=== PATIENT | female | born 1995 | race Caucasian/White ===

== ENCOUNTER 2016-08-10 09:50 | Outpatient (CLI) | payer OTHER ==
[~2016-08-10] VITALS: Ht 167.6 cm; Wt 123.4 kg
[~2016-08-10 09:50] MED LIST: 12 HOUR DECONG120 M1 PO; AMOXICILLIN875 MG PO; ANAPROX DS550 M1 PO; BENADRYL25 MG PO; BENTYL20 MG PO; DEPAKOTE ER500 MG PO; DIFLUCAN150 MG PO; EMVERM100 MG PO; FIORICET 50-301 EACH PO; IBUPROFEN600 MG PO; IMITREX25 MG PO; LEVOTHYROXINE75 MCG PO; MAGIC MOUTHWASH1 ML MM; METRONIDAZOLE500 MG PO; MOTRIN600 MG PO; MOTRIN800 MG PO; PEPCID20 MG PO; PREDNISONE10 M1 PO; PROMETHAZINE HC25 M1 PO; PROZAC; REGLAN10 MG PO; TRAMADOL HCL50 MG PO; ZOFRAN ODT4 MG PO; ZOFRAN4 MG PO; ZOLOFT25 MG PO
[2016-08-10 10:01] VITALS: BP 128/87
[2016-08-10 10:34] LABS: EOSINOPHIL (%) 0.1 % (0-5); HEMATOCRIT 39.8 % (36.0-46.0); IMMATURE GRANULOCYTE (%) 0.5 % (0.0-0.7); IMMATURE GRANULOCYTE COUNT 0.1 K/uL; LYMPHOCYTE COUNT 0.7 K/uL (1.0-2.8); MCH 29.7 PG (29.0-34.0); MCHC 32.9 G/DL (30.0-36.0); MCV 90.2 FL (83-99); MEAN PLAT.VOLUME 11.9 uM^3 (9.5-12.4); MONOCYTE (%) 3.8 % (3-12); MONOCYTE COUNT 0.7 K/uL (0-0.8); NEUTROPHIL (%) 91.8 % (45-76); PLATELET COUNT 194 K/uL (156-360); RBC DIS.WIDTH-CV 14.3 % (11.8-14.6); RBC DIS.WIDTH-SD 47.8 % (39-53); RED BLOOD COUNT 4.41 M/uL (3.80-5.20); WHITE BLOOD COUNT 18.5 K/uL (4.1-10.2)
[2016-08-10 10:59] LABS: UR CREATININE CONCENTRATION 194.3 MG/DL
[2016-08-10 11:19] LABS: ALKALINE PHOSPHATASE 126 IU/L (3-129); ANION GAP 14 MEQ/L (2-14); CHLORIDE 104 MEQ/L (99-109); GFR ESTIMATE (CALCULATED) > 59 mL/min/; GLUCOSE 83 mg/dL (70-99); POTASSIUM 4.3 MEQ/L (3.7-5.4); SAMPLE HEMOLYSIS CHECK 0; SAMPLE ICTERIC CHECK 0; SAMPLE LIPEMIA CHECK 0; SODIUM 138 MEQ/L (136-147); TOTAL BILIRUBIN 0.6 MG/DL (0.0-1.0); UREA NITROGEN (BUN) 9 mg/dL (9-23)
[2016-08-10 12:07] VITALS: BP 141/86
[2016-08-10 12:27] VITALS: BP 125/90
[2016-08-10] MEDS ORDERED: PROMETHAZINE HC25 M1 PO (12:35)
== END 2016-08-10 13:25 | disposition home or self-care (01) ==
LOC: LDRP-OP 09:50 → 2WEST 09:51 → LDRP-OP 09-22 18:12
PROVIDERS: Nurse Practitioner
DX: O99.613 Diseases of the digestive system complicating pregnancy, third trimester (principal); K52.9 Noninfective gastroenteritis and colitis, unspecified; Z3A.38 38 weeks gestation of pregnancy
CPT/HCPCS: 59025; 80053; 82570; 84156; 85025; G0378; J2765; J7120

== ENCOUNTER 2016-08-12 02:58 | Inpatient (IN) | payer OTHER ==
[2016-08-12] VITALS (40 sets, daily range): BP systolic 123–167; BP diastolic 62–105
[~2016-08-12] VITALS: Ht 162.6 cm; Wt 125.0 kg
[2016-08-12 05:02] LABS: EOSINOPHIL (%) 0.7 % (0-5); EOSINOPHIL COUNT 0.1 K/uL (0-0.3); HEMATOCRIT 37.6 % (36.0-46.0); IMMATURE GRANULOCYTE (%) 0.7 % (0.0-0.7); IMMATURE GRANULOCYTE COUNT 0.1 K/uL; LYMPHOCYTE COUNT 1.5 K/uL (1.0-2.8); MCH 29.8 PG (29.0-34.0); MCV 90.4 FL (83-99); MEAN PLAT.VOLUME 11.6 uM^3 (9.5-12.4); PLATELET COUNT 182 K/uL (156-360); RBC DIS.WIDTH-CV 14.3 % (11.8-14.6); RBC DIS.WIDTH-SD 47.4 % (39-53); RED BLOOD COUNT 4.16 M/uL (3.80-5.20); WHITE BLOOD COUNT 9.6 K/uL (4.1-10.2)
[2016-08-12] MEDS ORDERED: PRENATAL TABLE1 EAC3 PO (05:13)
[2016-08-12] MEDS ORDERED: MOTRIN800 MG PO (18:37)
[2016-08-12] MEDS ORDERED: FLAGYL500 MG PO (23:48)
[2016-08-13 04:06] VITALS: BP 118/70
[2016-08-13 07:07] VITALS: BP 133/74
[2016-08-13 15:17] VITALS: BP 135/73
[2016-08-13 22:59] VITALS: BP 145/81
[2016-08-14 07:14] VITALS: BP 144/71
== END 2016-08-14 14:00 | disposition home or self-care (01) | DRG 775 ==
LOC: LDRP-OP 02:58 → 2WEST 02:59 → LDRP-OP 09-22 13:45
PROVIDERS: Midwife
PROC: 3E0S3CZ (ICD-10-PCS; principal; 2016-08-12)
PROC: 00HU33Z Insertion of Infusion Device into Spinal Canal, Percutaneous Approach (ICD-10-PCS; principal; 2016-08-12)
PROC: 10E0XZZ Delivery of Products of Conception, External Approach (ICD-10-PCS; principal; 2016-08-12)
DX: O99.214 Obesity complicating childbirth (principal); Z37.0 Single live birth; F17.200 Nicotine dependence, unspecified, uncomplicated; O99.334 Smoking (tobacco) complicating childbirth; Z3A.38 38 weeks gestation of pregnancy; O69.81X0 Labor and delivery complicated by cord around neck, without compression, not applicable or unspecified
CPT/HCPCS: 85025; C1755; J0595; J3010; J7120; S0020

== ENCOUNTER 2017-12-01 13:27 | Emergency (ER) | payer OTHER ==
[~2017-12-01] VITALS: Ht 167.6 cm; Wt 110.7 kg
[~2017-12-01 13:27] MED LIST changes: +FLAGYL500 MG PO; +PRENATAL TABLE1 EAC3 PO
[2017-12-01 14:26] LABS: HEMATOCRIT 39.4 % (36.0-46.0); HEMOGLOBIN 13.8 G/DL (11.9-15.5); MCH 31.3 PG (29.0-34.0); MCV 89.3 FL (83-99); PLATELET COUNT 244 K/uL (156-360); RBC DIS.WIDTH-CV 12.8 % (11.8-14.6); RBC DIS.WIDTH-SD 42.1 % (39-53); RED BLOOD COUNT 4.41 M/uL (3.80-5.20)
[2017-12-01 14:36] LABS: ALBUMIN 4.7 g/dL (3.2-4.8)
[2017-12-01 14:37] LABS: CHLORIDE 108 mEq/L (99-109); SODIUM 141 mEq/L (136-147)
[2017-12-01 14:39] LABS: GLUCOSE 91 mg/dL (70-99); TOTAL PROTEIN 7.1 g/dL (6.4-8.3)
[2017-12-01 14:41] LABS: TOTAL BILIRUBIN 1.2 mg/dL (0.0-1.0)
[2017-12-01 14:42] LABS: ALKALINE PHOSPHATASE 46 IU/L (3-129)
[2017-12-01 14:43] LABS: CREATININE 0.8 mg/dL (0.6-1.3); GFR ESTIMATE (CALCULATED) > 59 mL/min/
[2017-12-01 14:44] LABS: AST (GOT) 24 IU/L (2-34); UREA NITROGEN (BUN) 7 mg/dL (9-23)
[2017-12-01 14:45] LABS: ALT (GPT) 26 IU/L (3-49)
[2017-12-01 14:47] LABS: TROP-I INTERPRETATION NEGATIVE; TROPONIN-I < 0.01 ng/mL (0.0-0.30)
[2017-12-01 15:40] LABS: APPEARANCE CLEAR ((CLEAR)); BILIRUBIN NEGATIVE; BLOOD NEGATIVE; COLOR YELLOW ((YELLOW)); GLUCOSE (STRIP) NEGATIVE; KETONES NEGATIVE; LEUKOCYTES NEGATIVE; NITRITE NEGATIVE; PROTEIN (STRIP) NEGATIVE; UCUL ADDED? NO; UROBILINOGEN 0.2 MG/DL (0.2-1.0)
[2017-12-01] MEDS ORDERED: AMOXICILLIN500 MG PO (16:53)
[2017-12-01] MEDS ORDERED: DIFLUCAN150 MG PO (17:03)
[2017-12-01 17:34] VITALS: BP 127/87
== END 2017-12-01 17:35 | disposition home or self-care (01) ==
LOC: EME 13:27
PROVIDERS: Nurse Practitioner Family
DX: H66.91 Otitis media, unspecified, right ear (principal); R42 Dizziness and giddiness; Z71.6 Tobacco abuse counseling; F17.200 Nicotine dependence, unspecified, uncomplicated; F32.9 Major depressive disorder, single episode, unspecified; F31.9 Bipolar disorder, unspecified; Z90.49 Acquired absence of other specified parts of digestive tract; Z88.8 Allergy status to other drugs, medicaments and biological substances
CPT/HCPCS: 80053; 81003; 81025; 84484; 85027; 93005; 99281; 99284